=== PATIENT | male | born 1990 | race African-American/Black ===

== ENCOUNTER 2016-10-01 05:28 | Emergency (ER) | payer SELFPAY ==
[~2016-10-01 05:28] MED LIST: Z.0.NO CURRENT MEDS
[2016-10-01 05:29] VITALS: BP 129/85; PULSE 58; RESP 16; TEMP 98.2; O2SAT 100
--- NOTE | 2016-10-01 05:56 | PD ---
HPI Chief Complaint: GI Complaint Time Seen by Provider: 05:42 Travel History International Travel<30 days: No Contact w/Intl Traveler<30days: No Traveled to known affect area: No History of Present Illness HPI The patient is a 26 year old male who presents to the [facility] emergency department with a history of midepigastric abdominal pain that began 1 and a 1/ 2 weeks ago. He has had intermittent diarrhea. He is usually having diarrhea 7 x per day. No blood in his stool. His child was sick with similar symptoms, however his child is now well. The abdominal pain is a cramping sensation. He had n/v x3 for the first time today which is what prompted him to come to the emergency department. He reports that with the onset of these symptoms he also had a cough and congestion that has been gradually improving. He denies any recent fever, neck pain, chest pain, shortness of breath, urinary symptoms, or neurologic symptoms. PFSH Past Medical History Narrative Medical The patient's past medical history is significant for asthma, bronchitis, allergies. Asthma: Yes Past Surgical History Narrative Surgical The patient's past surgical history is significant for left shoulder rotator cuff repair. Social History Alcohol Use: Yes (rarely) Tobacco Use: Yes (occasional cig) Substance Use: Yes (MARIJUANA ) Allergies-Medications (Allergen,Severity, Reaction): Coded Allergies: No Known Allergies (Unverified , 10/01/16) Reported Meds & Prescriptions Reported Meds & Active Scripts Active No Active Prescriptions or Reported Medications Narrative Medication nyquil. Review of Systems Except as stated in HPI: all other systems reviewed are Neg General / Constitutional: No: Fever Eyes: No: Visual changes HENT: Positive: Congestion, No: Headaches Cardiovascular: No: Chest Pain or Discomfort Respiratory: Positive: Cough, No: Shortness of Breath Gastrointestinal: Positive: Nausea, Vomiting, Diarrhea, Abdominal Pain, Changes in Bowel Habits, Indigestion, Loss of Appetite Genitourinary: No: Dysuria Musculoskeletal: No: Pain Skin: No Rash Neurologic: No: Weakness Psychiatric: No: Depression Endocrine: No: Polydipsia Hematologic/Lymphatic: No: Easy Bruising Physical Exam Narrative General: The patient is a well-developed well-nourished male in no acute distress. Head and Neck exam: Head is normocephalic atraumatic. Eyes: EOMI, pupils are equal round and reactive to light. Nose: Midline septum with pink mucous membranes Mouth: Dentition unremarkable. Moist mucus membranes. Posterior oropharynx is not erythematous. No tonsillar hypertrophy. Uvula midline. Airway patent. Neck: No palpable lymphadenopathy. No nuchal rigidity. No thyromegaly. Cardiovascular: Regular rate and rhythm without murmurs, gallops, or rubs. Lungs: Clear to auscultation bilaterally. No wheezes, rhonchi, or rales. Abdomen: Soft, with tenderness on palpation of the midepigastric area and tenderness on palpation in the right lower quadrant of the abdomen. No other tenderness on palpation of the other quadrants. No guarding, rebound, or rigidity. Normal bowel sounds are audible. The patient also has some tenderness on palpation over McBurney's point in the right lower quadrant of the abdomen. Negative [place] sign. Extremities: No clubbing, cyanosis, or edema. 2+ pulses in all 4 extremities. No calf tenderness on palpation. Back: No spinous process tenderness to palpation. No costovertebral angle tenderness to palpation. Neurologic Exam: Grossly nonfocal. Skin Exam: No rash noted. Intact skin that is warm and dry. Data Data Last Documented VS Vital Signs Date Time Temp Pulse Resp B/P Pulse Ox O2 Delivery O2 Flow Rate FiO2 10/01/16 06:27 56 16 132/83 100 Room Air 10/01/16 05:29 98.2 Orders Complete Blood Count With Diff (10/01/16 05:58) Comprehensive Metabolic Panel (10/01/16 05:58) C-Reactive Protein (Crp) (10/01/16 05:58) Lipase (10/01/16 05:58) Urinalysis - C+S If Indicated (10/01/16 05:58) Iv Access Insert/Monitor (10/01/16 05:58) Ecg Monitoring (10/01/16 05:58) Oximetry (10/01/16 05:58) Ondansetron Inj (Zofran Inj) (10/01/16 06:00) Sodium Chlor 0.9% 1000 Ml Inj (Ns 1000 M (10/01/16 06:00) Labs Laboratory Tests Test 10/01/16 06:15 White Blood Count 5.1 TH/MM3 Red Blood Count 4.63 MIL/MM3 Hemoglobin 13.2 GM/DL Hematocrit 40.7 % Mean Corpuscular Volume 88.0 FL Mean Corpuscular Hemoglobin 28.6 PG Mean Corpuscular Hemoglobin 32.5 % Concent Red Cell Distribution Width 13.1 % Platelet Count 166 TH/MM3 Mean Platelet Volume 10.3 FL Neutrophils (%) (Auto) 46.0 % Lymphocytes (%) (Auto) 46.4 % Monocytes (%) (Auto) 5.5 % Eosinophils (%) (Auto) 1.4 % Basophils (%) (Auto) 0.7 % Neutrophils # (Auto) 2.4 TH/MM3 Lymphocytes # (Auto) 2.4 TH/MM3 Monocytes # (Auto) 0.3 TH/MM3 Eosinophils # (Auto) 0.1 TH/MM3 Basophils # (Auto) 0.0 TH/MM3 CBC Comment DIFF FINAL Differential Comment MDM Medical Decision Making Medical Screen Exam Complete: Yes Emergency Medical Condition: Yes Medical Record Reviewed: Yes Differential Diagnosis Gastroenteritis, versus viral syndrome, versus electrolyte arrangements, versus acute pancreatitis, versus dehydration Narrative Course During the course of the patients emergency department visit, the patients history, examination, and differential diagnosis were reviewed with the patient. The patient had IV access obtained and blood work sent for analysis. The patient was placed on a bus monitor with oximetry and blood pressure monitoring. The patient was initially provided normal saline 1 L IV fluid bolus. The patient was given Zofran 4 mg IV. The patients laboratory studies were reviewed and remarkable for a white count of 5.1, hemoglobin 13.2, platelets 166 with 46.4 lymphocytes consistent with a viral syndrome. CMP, urinalysis are pending. CT scan of the abdomen and pelvis is pending. The patient's case will be checked out to the oncoming emergency physician to disposition the patient based on the conclusion of the patient's workup. Diagnosis Primary Impression: Nausea, vomiting, and diarrhea Additional Impression: Abdominal pain Referrals: Primary Care Physician Patient Instructions: Acute Diarrhea (ED), Acute Nausea and Vomiting (ED), General Instructions Departure Forms: Tests/Procedures, Work Release Enter return to work date: Oct 03, 2016 Med/Other Pt SpecificInfo: Prescription(s) given Scripts No Active Prescriptions or Reported Meds Zuleika Andrew MD Oct 01, 2016 05:56 Departure Forms: Tests/Procedures, Work Release Enter return to work date: Oct 03, 2016 Med/Other Pt SpecificInfo: Prescription(s) given Scripts No Active Prescriptions or Reported Meds Disposition: 01 DISCHARGE HOME Condition: Zuleika Dickens MD Oct 01, 2016 05:56
[2016-10-01] MEDS ORDERED: SODIUM CHLOR 0.9% 1000 ML INJ 1,000 ML IV ONE (06:00)
[2016-10-01] MEDS ORDERED: ONDANSETRON HCL 4 MG/2 ML VIAL IV ONE (06:00)
[2016-10-01] MEDS ORDERED: ZOFR4TAB3 SL (06:17)
[2016-10-01 06:22] VITALS: O2SAT 98
[2016-10-01 06:27] VITALS: BP 132/83; PULSE 56; RESP 16; O2SAT 100
[2016-10-01 06:47] LABS: AUTOMATED NEUTROPHIL # 2.4 TH/MM3 (1.8-7.7); BASOPHIL % 0.7 % (0.0-2.0); EOSINOPHIL # 0.1 TH/MM3 (0-0.4); EOSINOPHIL % 1.4 % (0.0-4.0); HEMATOCRIT 40.7 % (39.0-51.0); HEMO FLAGS DIFF FINAL; LYMPH % 46.4 % (9.0-44.0); LYMPHOCYTE # 2.4 TH/MM3 (1.0-4.8); MEAN CORPUSCULAR HEMOGLOBIN 28.6 PG (27.0-34.0); MEAN CORPUSCULAR HGB CONC 32.5 % (32.0-36.0); MONO % 5.5 % (0.0-8.0); PLATELET COUNT 166 TH/MM3 (150-450); RED BLOOD COUNT 4.63 MIL/MM3 (4.50-5.90); RED CELL DISTRIBUTION WIDTH 13.1 % (11.6-17.2); WHITE BLOOD COUNT 5.1 TH/MM3 (4.0-11.0)
[2016-10-01 07:16] LABS: ALT (GPT) 26 U/L (12-78)
[2016-10-01 07:19] LABS: ALKALINE PHOSPHATASE 43 U/L (45-117); ANION GAP 5 MEQ/L (5-15); AST (GOT) 17 U/L (15-37); BICARBONATE 27.3 MEQ/L (21.0-32.0); BLOOD UREA NITROGEN 11 MG/DL (7-18); CHLORIDE 109 MEQ/L (98-107); GLOMERULAR FILTRATION RATE 89 ML/MIN (>89); POTASSIUM 3.9 MEQ/L (3.5-5.1); SODIUM (NA) 141 MEQ/L (136-145); TOTAL BILIRUBIN ADULT 0.4 MG/DL (0.2-1.0)
[2016-10-01 07:21] LABS: BLOOD, URINE NEG (NEG); GLUCOSE,URINE NEG (NEG); KETONE, URINE NEG (NEG); NITRITE,URINE NEG (NEG); URINE COLOR YELLOW (YELLW/STRAW)
[2016-10-01 07:30] LABS: COMMENT (UR) CULT NOT INDICATED; CULTURE IF INDICATED CULT NOT INDICATED
[2016-10-01] MEDS ORDERED: IOHEXOL 350 MG/ML 10 ML VIAL (for RAD DIAG) IV ONE (07:57)
--- NOTE | 2016-10-01 08:01 | RADRPT ---
EXAM DATE/TIME: 10/01/2016 07:31 [place] COMPARISON: No previous studies available for comparison. INDICATIONS : Midepigastric pain for one week with diarrhea. IV CONTRAST: 97 cc Omnipaque 350 (iohexol) IV ORAL CONTRAST: No oral contrast ingested. RADIATION DOSE: 7.74 CTDIvol (mGy) MEDICAL HISTORY : None SURGICAL HISTORY : None. ENCOUNTER: Initial ACUITY: 1 week PAIN SCALE: 7/10 LOCATION: abdomen TECHNIQUE: Volumetric scanning of the abdomen and pelvis was performed. Using automated exposure control and ad justment of the mA and/or kV according to patient size, radiation dose was kept as low as reasonably achievable to obtain optimal diagnostic quality images. DICOM format image data is available electro nically for review and comparison. FINDINGS: LOWER LUNGS: The visualized lower lungs are clear. LIVER: Homogeneous density without lesion. There is no dilation of the biliary tree. No calcified [place]ston es. SPLEEN: Normal size without lesion. PANCREAS: Within normal limits. KIDNEYS: Normal in size and shape. There is no mass, stone or hydronephrosis. ADRENAL GLANDS: Within normal limits. VASCULAR: There is no aortic aneurysm. BOWEL/MESENTERY: The stomach, small bowel, and colon demonstrate no acute abnormality. There is no free intraperitone al air or fluid. ABDOMINAL WALL: Within normal limits. RETROPERITONEUM: There is no lymphadenopathy. BLADDER: No wall thickening or mass. REPRODUCTIVE: Within normal limits. INGUINAL: There is no lymphadenopathy or hernia. MUSCULOSKELETAL: Within normal limits for patient age. CONCLUSION: Normal examination. Chris Genao Jr., MD on October 01, 2016 at 7:57 Board Certified Radiologist. This report was verified electronically.
--- NOTE | 2016-10-01 08:05 | PD ---
Data Data Last Documented VS Vital Signs Date Time Temp Pulse Resp B/P Pulse Ox O2 Delivery O2 Flow Rate FiO2 10/01/16 06:27 56 16 132/83 100 Room Air 10/01/16 05:29 98.2 Orders Complete Blood Count With Diff (10/01/16 05:58) Comprehensive Metabolic Panel (10/01/16 05:58) C-Reactive Protein (Crp) (10/01/16 05:58) Lipase (10/01/16 05:58) Urinalysis - C+S If Indicated (10/01/16 05:58) Iv Access Insert/Monitor (10/01/16 05:58) Ecg Monitoring (10/01/16 05:58) Oximetry (10/01/16 05:58) Ondansetron Inj (Zofran Inj) (10/01/16 06:00) Sodium Chlor 0.9% 1000 Ml Inj (Ns 1000 M (10/01/16 06:00) Ct Abd/Pel W Iv Contrast(Rout) (10/01/16 06:53) Iohexol 350 Inj (Omnipaque 350 Inj) (10/01/16 07:57) Labs Laboratory Tests Test 10/01/16 10/01/16 06:15 06:20 White Blood Count 5.1 TH/MM3 Red Blood Count 4.63 MIL/MM3 Hemoglobin 13.2 GM/DL Hematocrit 40.7 % Mean Corpuscular Volume 88.0 FL Mean Corpuscular Hemoglobin 28.6 PG Mean Corpuscular Hemoglobin 32.5 % Concent Red Cell Distribution Width 13.1 % Platelet Count 166 TH/MM3 Mean Platelet Volume 10.3 FL Neutrophils (%) (Auto) 46.0 % Lymphocytes (%) (Auto) 46.4 % Monocytes (%) (Auto) 5.5 % Eosinophils (%) (Auto) 1.4 % Basophils (%) (Auto) 0.7 % Neutrophils # (Auto) 2.4 TH/MM3 Lymphocytes # (Auto) 2.4 TH/MM3 Monocytes # (Auto) 0.3 TH/MM3 Eosinophils # (Auto) 0.1 TH/MM3 Basophils # (Auto) 0.0 TH/MM3 CBC Comment DIFF FINAL Differential Comment Sodium Level 141 MEQ/L Potassium Level 3.9 MEQ/L Chloride Level 109 MEQ/L Carbon Dioxide Level 27.3 MEQ/L Anion Gap 5 MEQ/L Blood Urea Nitrogen 11 MG/DL Creatinine 1.21 MG/DL Estimat Glomerular Filtration 89 ML/MIN Rate Random Glucose 82 MG/DL Calcium Level 8.7 MG/DL Total Bilirubin 0.4 MG/DL Aspartate Amino Transf 17 U/L (AST/SGOT) Alanine Aminotransferase 26 U/L (ALT/SGPT) Alkaline Phosphatase 43 U/L C-Reactive Protein LESS THAN 0.29 MG/DL Total Protein 7.0 GM/DL Albumin 4.0 GM/DL Lipase 182 U/L Urine Color YELLOW Urine Turbidity CLEAR Urine pH 6.0 Urine Specific [place] 1.027 Urine Protein NEG mg/dL Urine Glucose (UA) NEG mg/dL Urine Ketones NEG mg/dL Urine Occult Blood NEG Urine Nitrite NEG Urine Bilirubin NEG Urine Urobilinogen 2.0 MG/DL Urine Leukocyte Esterase NEG Urine RBC LESS THAN 1 /hpf Urine WBC LESS THAN 1 /hpf Microscopic Urinalysis Comment CULT NOT INDICATED MDM Supervised Visit with JOSÉ MIGUEL: No Narrative Course This is a 26-year-old male who presents to the emergency department with vomiting and diarrhea. Labs and CT abdomen and pelvis were performed which were all reassuring. I suspect the patient has gastroenteritis. He'll be discharged home with symptomatic management. Diagnosis Primary Impression: Nausea, vomiting, and diarrhea Additional Impression: Abdominal pain Qualified Code: R10.31 - Right lower quadrant abdominal pain Referrals: Primary Care Physician Patient Instructions: General Instructions, Acute Nausea and Vomiting (ED), Acute Diarrhea (ED) Departure Forms: Work Release, Enter return to work date: Tests/Procedures Med/Other Pt SpecificInfo: Prescription(s) given Scripts No Active Prescriptions or Reported Meds Disposition: 01 DISCHARGE HOME Condition: Stable Charisma Sy MD Oct 01, 2016 08:05
[2016-10-01 08:25] VITALS: BP 118/59
== END 2016-10-01 08:25 | disposition home or self-care (01) ==
LOC: NEPE 05:28
DX: R11.2 Nausea with vomiting, unspecified (principal); R19.7 Diarrhea, unspecified; R10.31 Right lower quadrant pain; R05 Cough; Z72.0 Tobacco use; Z87.09 Personal history of other diseases of the respiratory system
CPT/HCPCS: 74177; 80053; 81001; 83690; 85025; 86140; 96361; 96374; 99285; J2405; J7030; Q9967

== ENCOUNTER 2017-05-13 20:58 | Emergency (ER) | payer SELFPAY ==
[~2017-05-13] VITALS: Ht 170.2 cm; Wt 80.0 kg
[2017-05-13 21:33] VITALS: BP 138/77; PULSE 77; RESP 18; TEMP 98.7; O2SAT 100
[2017-05-13 23:04] VITALS: BP 178/65; PULSE 63; RESP 20; O2SAT 100
--- NOTE | 2017-05-13 23:07 | PD ---
HPI Chief Complaint: Abdominal Pain Time Seen by Provider: 22:51 Travel History International Travel<30 days: No Contact w/Intl Traveler<30days: No Traveled to known affect area: No History of Present Illness HPI The patient is a 27-year-old -German male who presents to the emergency department for nausea, vomiting, diarrhea. The patient's symptoms started 2 days ago, initially with nausea vomiting. The nausea and vomiting have resolved, however, the patient has persistent diarrhea. The patient describes the diarrhea as loose, watery, brown, without any visible blood. He does have a son at home who had similar symptoms recently. The patient denies any recent international travel, history of C. difficile, or recent use of antibiotics. The abdominal pain is intermittent, crampy, associated with diarrhea. He denies any known history of colitis. Symptoms are moderate. He denies any associated fever, chills, or sweats. PFSH Past Medical History Medical History: Denies Significant Hx Asthma: Yes Respiratory: Yes (BRONCHITIS) Social History Alcohol Use: Yes (rarely) Tobacco Use: Yes (occasional cig) Substance Use: Yes (MARIJUANA ) Allergies-Medications (Allergen,Severity, Reaction): Coded Allergies: No Known Allergies (Unverified Adverse Reaction, Unknown, 05/13/17) Reported Meds & Prescriptions Reported Meds & Active Scripts Active No Active Prescriptions or Reported Medications Review of Systems Except as stated in HPI: all other systems reviewed are Neg General / Constitutional: No: Fever Gastrointestinal: Positive: Nausea, Vomiting, Diarrhea, Abdominal Pain ( Intermittent crampy abdominal pain) Genitourinary: No: Decreased Urinary Output Musculoskeletal: No: Myalgias Physical Exam Narrative GENERAL: Awake, alert, pleasant 27-year-old male who appears his stated age and is in no acute respiratory distress. SKIN: Focused skin assessment warm/dry. HEAD: Atraumatic. Normocephalic. EYES: Pupils equal and round. No scleral icterus. No injection or drainage. ENT: No nasal bleeding or discharge. Slightly dry mucous membranes. NECK: Trachea midline. No JVD. CARDIOVASCULAR: Regular rate and rhythm. No murmur appreciated. RESPIRATORY: No accessory muscle use. Clear to auscultation. Breath sounds equal bilaterally. GASTROINTESTINAL: Abdomen soft, non-tender, nondistended. No rebound tenderness , guarding, rigidity. MUSCULOSKELETAL: No obvious deformities. No clubbing. No cyanosis. No edema. NEUROLOGICAL: Awake and alert. No obvious cranial nerve deficits. Motor grossly within normal limits. Normal speech. PSYCHIATRIC: Appropriate mood and affect; insight and judgment normal. Data Data Last Documented VS Vital Signs Date Time Temp Pulse Resp B/P (MAP) Pulse Ox O2 Delivery O2 Flow Rate FiO2 05/13/17 23:04 63 20 178/65 (102) 100 Room Air 05/13/17 21:33 98.7 Orders Orders Loperamide (Imodium) (05/13/17 23:15) [facility] Medical Decision Making Medical Screen Exam Complete: Yes Emergency Medical Condition: Yes Medical Record Reviewed: Yes Differential Diagnosis Differential diagnosis includes gastroenteritis, viral syndrome, enteritis, colitis, C. difficile, food poisoning, dehydration, electrolyte abnormality. Narrative Course The patient is tolerating p.o. without difficulty, vitals are normal. The patient was administered p.o. challenge with jose francheska and Imodium 4 mg orally. The patient was able to drink water without difficulty. He will be discharged home on Zofran and Imodium, is advised to have a clear liquid diet, advance as tolerated, work excuse for 2 days. Return if symptoms worsen or progress. Diagnosis Primary Impression: Nausea, vomiting, and diarrhea Patient Instructions: General Instructions Additional Instructions: Work excuse for 2 days. Diet should be clear liquids and advance as tolerated. Avoid milk products for the next several days. Zofran as needed for nausea. Imodium as needed for diarrhea. Return if symptoms worsen or progress. Med/Other Pt SpecificInfo: Prescription(s) given Scripts Loperamide (Imodium A-D) 2 Mg Capsule 2 MG PO DIRECTED Y for DIARRHEA, #12 CAP 0 Refills One capsule after each loose stool. Not to exceed 8 tablets per day. Prov: Sim Bergman MD 05/14/17 Ondansetron Odt (Zofran Odt) 4 Mg Tab 4 MG SL Q6HR Y for Nausea/Vomiting, #7 TAB 0 Refills Prov: Sim Bergman MD 05/14/17 Disposition: DISCHARGE HOME Condition: Stable Sim Bergman MD May 13, 2017 23:07
[2017-05-13] MEDS ORDERED: LOPERAMIDE HCL 2 MG CAP PO ONE (23:15)
[2017-05-14] MEDS ORDERED: ZOFR4TAB3 SL (00:22)
[2017-05-14] MEDS ORDERED: LOPE-1 PO (00:22)
== END 2017-05-14 00:54 | disposition home or self-care (01) ==
LOC: NEPC 20:58
DX: R11.2 Nausea with vomiting, unspecified (principal); R19.7 Diarrhea, unspecified; R10.9 Unspecified abdominal pain
CPT/HCPCS: 99283